=== PATIENT | female | born 1995 ===

== ENCOUNTER 2017-04-15 23:02 | Inpatient (IN) | payer SELFPAY ==
[~2017-04-15] VITALS: Ht 152.4 cm; Wt 62.3 kg
[2017-04-15 23:08] VITALS: BP 118/83
[2017-04-15 23:19] LABS: BILIRUBIN NEGATIVE (NEGATIVE); BLOOD TRACE-LYSED (NEGATIVE); CLARITY SL CLOUDY (CLEAR); COLOR YELLOW (YELLOW); GLUCOSE NEGATIVE (NEGATIVE); KETONE NEGATIVE (NEGATIVE); LEUKO ESTERASE NEGATIVE (NEGATIVE); NITRITE POSITIVE (NEGATIVE); SPECIFIC GRAVITY 1.025 (1.005-1.030); UROBILINOGEN 0.2 E.U./dl (0.2-1.0)
[2017-04-15 23:24] LABS: RBC 0-2 rbc/hpf (0-2); WBC 0-2 wbc/hpf (0-5)
[2017-04-15 23:24] LABS: BASO # 0.1 10*3/uL (0.0-0.1); BASO % 1.1 % (0.0-1.0); EOS # 0.1 10*3/uL (0.0-0.4); EOS % 1.6 % (1.0-4.0); HEMATOCRIT 42.3 % (37.0-47.0); HEMOGLOBIN 14.6 g/dl (12.0-16.0); LYMPH # 3.5 10*3/uL (1.3-4.4); LYMPH % 54.7 % (27.0-41.0); MEAN CELL VOLUME 97.9 fl (81.0-99.0); MEAN CORPUSCULAR HGB 33.8 pg (27.0-31.0); MEAN CORPUSCULAR HGB CONC 34.5 g/dl (33.0-37.0); MEAN PLATELET VOLUME 8.5 fl (9.6-12.3); MONO # 0.6 10*3/uL (0.1-1.0); MONO % 8.6 % (3.0-9.0); NEUT # 2.2 10*3/uL (2.3-7.9); NEUT % 33.7 % (47.0-73.0); PLATELET COUNT AUTOMATED 278 10*3/uL (130-400); RED BLOOD COUNT 4.32 10*6/uL (4.10-5.10); RED CELL DISTRI WIDTH 13.6 % (0-14.5); WHITE BLOOD COUNT 6.4 10*3/uL (4.8-10.8)
[2017-04-15 23:25] LABS: BACTERIA 4+
[2017-04-15 23:28] LABS: URINE AMPHETAMINES < 1000 (1000ng/ml); URINE BARBITURATES < 200 (200ng/ml); URINE BENZODIAZEPINES < 200 (200ng/ml); URINE CANNABINOIDS (THC) < 50 (50ng/ml); URINE COCAINE < 300 (300ng/ml); URINE METHADONE < 300 (300ng/ml); URINE OPIATES < 300 (300ng/ml); URINE PHENCYCLIDINE < 25 (25ng/ml)
[2017-04-15 23:39] LABS: ALKALINE PHOSPHATASE 74 U/L (45-117); BUN 9 mg/dl (7-24); CHLORIDE 110 mmol/L (98-107); CREATININE 0.83 mg/dL (0.55-1.02); LIPASE 182 U/L (73-393); POTASSIUM 4.1 mmol/L (3.5-5.1); SGOT/AST 36 IU/L (3-35); SGPT/ALT 30 U/L (12-78); SODIUM 146 mmol/L (136-145); TOTAL PROTEIN 8.4 gm/dL (6.4-8.2)
[2017-04-15 23:43] LABS: BETA-HCG, QUANT < 1.0 mIU/mL (1-3)
--- NOTE | 2017-04-15 23:45 | NUR ---
LAB CALLED WITH CRITICAL VALUE OF ETOH 456. NOTIFIED.
[2017-04-16 01:10] VITALS: BP 95/64
--- NOTE | 2017-04-16 01:40 | NUR ---
A 21, admitted to [facility], under the services of HAMZAH Christian DO with a diagnosis of ALCOHOL POISONING, ASYMPT BACTERIURIA. Chief complaint is ALCOHOL INTOX. Patient arrived via stretcher from ER. Monitor applied. Initial assessment completed. Vital signs taken and recorded. HAMZAH CHRISTIAN DO notified of admission to the unit. Orders received. See assessment for past medical history, medications and allergies. Patient and/or family oriented to unit. [facility] visitation policy reviewed. Clothing/patient valuable form completed. LAURA BENJAMIN
[2017-04-16 04:00] VITALS: BP 98/47
[2017-04-16 05:02] LABS: BASO # 0.1 10*3/uL (0.0-0.1); BASO % 0.9 % (0.0-1.0); EOS # 0.1 10*3/uL (0.0-0.4); EOS % 1.4 % (1.0-4.0); HEMATOCRIT 38.9 % (37.0-47.0); HEMOGLOBIN 13.7 g/dl (12.0-16.0); LYMPH # 3.7 10*3/uL (1.3-4.4); LYMPH % 58.3 % (27.0-41.0); MEAN CELL VOLUME 98.2 fl (81.0-99.0); MEAN CORPUSCULAR HGB 34.6 pg (27.0-31.0); MEAN CORPUSCULAR HGB CONC 35.2 g/dl (33.0-37.0); MEAN PLATELET VOLUME 8.7 fl (9.6-12.3); MONO # 0.5 10*3/uL (0.1-1.0); MONO % 7.6 % (3.0-9.0); NEUT % 31.6 % (47.0-73.0); PLATELET COUNT AUTOMATED 261 10*3/uL (130-400); RED BLOOD COUNT 3.96 10*6/uL (4.10-5.10); RED CELL DISTRI WIDTH 13.8 % (0-14.5); WHITE BLOOD COUNT 6.4 10*3/uL (4.8-10.8)
[2017-04-16 05:06] LABS: ACT PARTIAL THROMBO TIME 24.3 SECONDS (20.8-31.5)
[2017-04-16 05:07] LABS: BUN 8 mg/dl (7-24); CHLORIDE 112 mmol/L (98-107); CREATININE 0.68 mg/dL (0.55-1.02); POTASSIUM 3.4 mmol/L (3.5-5.1); SODIUM 147 mmol/L (136-145)
[2017-04-16 05:18] LABS: THYROID STIM HORMONE (HS) 0.681 uIU/ml (0.358-4.75)
[2017-04-16 08:00] VITALS: BP 107/58
--- NOTE | 2017-04-16 08:00 | NUR ---
PT RESTING. PT AWAKENS EASILY WITH STIMULI. PT AAO X 3. PT DENIES PAIN OR NAUSEA. PT STATES SHE "DOSEN'T REMEMBER" WHAT HAPPENED TO GET HER ADMITTED INTO THE HOSPITAL LAST PM. PT UPDATED ON PLAN OF CARE.
[2017-04-16 08:49] LABS: VITAMIN D, 25-HYDROXY 21.6 ng/mL (30-100)
--- NOTE | 2017-04-16 08:57 | NUR ---
met with client to assess for needs, she denies suicidal ideation to me, she said she will stay with her friend upon dc, she does drink every day and i offered services and she declined.
--- NOTE | 2017-04-16 09:30 | NUR ---
SHANA CRUZ IN TO SEE PT. PT REFUSED COUNSELING OR ANY OUTPT THERAPY AT THIS TIME.
[2017-04-16 12:00] VITALS: BP 102/48
[2017-04-16 16:00] VITALS: BP 106/54
--- NOTE | 2017-04-16 17:13 | NUR ---
GANESH CORDOBA IN TO SEE PT EARLIER. GANESH CALLED BACK AFTER ETOH RESULTS WERE KNOWN AND STATED PT COULD BE DISCHARGED HOME IF SOMEONE PICKS HER UP. PT STATES SHE WILL HAVE SOMEONE COME TO GET HER.
--- NOTE | 2017-04-16 17:59 | NUR ---
SPOKE WITH GANESH CORDOBA CNP, R/T PT EDMOND UNABLE TO FIND A RIDE AT THIS TIME. GANESH STATED IS DISCHARGED AND CAN LEAVE BY [facility] IF NEEDED. WILL NOTIFY PATIENT.
--- NOTE | 2017-04-16 18:50 | NUR ---
Discharge instructions reviewed with patient. Patient receptive and verbalizes understanding. Follow-up care arranged. Written instructions given to patient. SARAH AWAD
== END 2017-04-16 18:50 | disposition home or self-care (01) | DRG 918 ==
LOC: ED 23:02 → EDHOLD 04-16 00:38 → ICCU 04-16 00:41
PROVIDERS: Emergency Medicine Emergency Medical Services; Internal Medicine; ADMIT Internal Medicine
DX: T51.91XA Toxic effect of unspecified alcohol, accidental (unintentional), initial encounter (principal); E87.0 Hyperosmolality and hypernatremia; E87.8 Other disorders of electrolyte and fluid balance, not elsewhere classified; E86.0 Dehydration; R82.71 Bacteriuria; E87.6 Hypokalemia; E55.9 Vitamin D deficiency, unspecified; Y90.8 Blood alcohol level of 240 mg/100 ml or more; Z71.6 Tobacco abuse counseling; Z72.0 Tobacco use; Y92.89 Other specified places as the place of occurrence of the external cause